=== PATIENT | female | born 1975 | race Caucasian/White ===

== ENCOUNTER 2018-11-11 18:50 | Emergency (ER) | payer OTHER ==
[~2018-11-11] VITALS: Ht 170.2 cm; Wt 119.3 kg
[2018-11-11 19:46] LABS: BILIRUBIN,URINE SMALL (NEG); CLARITY,URINE CLOUDY; COLOR,URINE YELLOW; NITRITE,URINE NEGATIVE (NEG); PROTEIN,URINE NEGATIVE (NEG-TRACE)
[2018-11-11 19:53] LABS: BACTERIA,URINE MANY /HPF (0-FEW); SQUAMOUS EPITHELIAL CELL,UR MOD /LPF
[2018-11-11 19:54] LABS: RBC,URINE OCC /HPF (0-2)
[2018-11-11] MEDS ORDERED: IV NORMAL SALINE 1000ML BAG 1,000 ML IV ONE (20:00)
[2018-11-11] MEDS ORDERED: ONDANSETRON PF 4 MG/2 ML VIAL. IV ONE (20:00)
[2018-11-11] MEDS ORDERED: fentaNYL PF VIAL 100 MCG/2 ML VIAL IV ONE (20:00)
[2018-11-11 20:01] LABS: FECAL OB PT POSITIVE (NEG)
[2018-11-11 20:05] LABS: BASO # 0.1 x10^3/uL (0.0-0.2); BASO % 1 % (0-3); EOS # 0.1 x10^3/uL (0.0-0.7); EOS % 1 % (0-3); HEMATOCRIT 40.7 % (36.0-47.0); HEMOGLOBIN 13.9 g/dL (12.0-15.5); LYMPH # 2.2 x10^3/uL (1.0-4.8); LYMPH % 23 % (24-48); MEAN CORPUSCULAR HEMOGLOBIN 30 pg (25-35); MEAN CORPUSCULAR HGB CONC 34 g/dL (31-37); MEAN CORPUSCULAR VOLUME 88 fL (79-100); MONO # 0.7 x10^3/uL (0.0-1.1); MONO % 7 % (0-9); NEUT # 6.7 x10^3/uL (1.8-7.7); NEUT % 69 % (31-73); PLATELET COUNT 277 x10^3/uL (140-400); RED BLOOD COUNT 4.62 x10^6/uL (3.50-5.40); RED CELL DISTRIBUTION WIDTH 15.6 % (11.5-14.5); WHITE BLOOD COUNT 9.8 x10^3/uL (4.0-11.0)
[2018-11-11 20:21] LABS: CALCIUM 9.4 mg/dL (8.5-10.1); GFR 61.1; POTASSIUM 3.6 mmol/L (3.5-5.1)
[2018-11-11 20:27] LABS: ALBUMIN 3.9 g/dL (3.4-5.0); ALBUMIN/GLOBULIN RATIO 1.1 (1.0-1.7); TOTAL BILIRUBIN 0.4 mg/dL (0.2-1.0); TOTAL PROTEIN 7.5 g/dL (6.4-8.2)
[2018-11-11] MEDS ORDERED: IOHEXOL 300 MG/ML 100ML VIAL. IV ONE (21:00)
[2018-11-11] MEDS ORDERED: CONTRAST GIVEN. MC PRN (21:00)
--- NOTE | 2018-11-11 21:49 | RAD ---
CT ABD PELV W/ IV CONTRST ONLY Indication: Lower abdominal pain, blood in stool Technique: Postcontrast CT imaging was performed of the abdomen pelvis, multiplanar reconstruction images submitted. No oral contrast was given. One or more of the following individualized dose reduction techniques were utilized for this examination: 1. Automated exposure control 2. Adjustment of the mA and/or kV according to patient size 3. Use of iterative reconstruction technique. Comparison: None Findings: No focal abnormality is identified of the liver, pancreas, spleen. There has been cholecystectomy. Both kidneys enhance, no hydronephrosis. Accurate evaluation of bowel is limited without oral contrast, no bowel dilatation or free air. There is small quantity of free fluid in the posterior left pelvis near the adnexa region, some fullness of left adnexa with focus of different density about 1.4 cm. Normal caliber appendix is visualized without adjacent inflammatory change. There is transitional anatomy of the lumbar spine. There is degenerative disc disease of the visualized L4-5 level, also disc osteophyte complex at this level contributing to narrowing of the left neural foramen in combination with facet degenerative change. IMPRESSION: 1. There is minimal free fluid in the left dependent pelvis, some heterogeneity of the left adnexal region possibly component of small underlying complex or hemorrhagic cyst poorly evaluated on this exam. 2. There is no significant inflammatory change about the bowel, no CT evidence of acute appendicitis. 3. There is transitional anatomy of the lumbar spine, degenerative disc disease and spondylosis at what is considered L4-5, also narrowing of the left L4-5 neural foramen by facet degenerative change and disc osteophyte complex. Electronically signed by: Richard Lemon MD (11/11/2018 9:47 PM) [facility]
--- NOTE | 2018-11-11 21:59 | PHYS DOC ---
Past Medical History Past Medical History: Asthma, Hypothyroid Past Surgical History: Cholecystectomy, Other Additional Past Surgical Histo: back Alcohol Use: None Drug Use: None Adult General Chief Complaint Chief Complaint: ABDOMINAL PAIN HPI HPI Patient is a 43 year old [f__sex] who presents with [] Review of Systems Review of Systems Constitutional: Denies fever or chills [] Eyes: Denies change in visual acuity, redness, or eye pain [] HENT: Denies nasal congestion or sore throat [] Respiratory: Denies cough or shortness of breath [] Cardiovascular: No additional information not addressed in HPI [] GI: Denies abdominal pain, nausea, vomiting, bloody stools or diarrhea [] : Denies dysuria or hematuria [] Musculoskeletal: Denies back pain or joint pain [] Integument: Denies rash or skin lesions [] Neurologic: Denies headache, focal weakness or sensory changes [] Endocrine: Denies polyuria or polydipsia [] All other systems were reviewed and found to be within normal limits, except as documented in this note. Current Medications Current Medications Current Medications Medications (Trade) Dose Ordered Sig/Homero Start Time Stop Time Status Last Admin Dose Admin Fentanyl Citrate (Fentanyl 2ml Vial) 50 mcg 1X ONCE 11/11/18 20:00 11/11/18 20:01 DC 11/11/18 20:04 50 MCG Info (CONTRAST GIVEN -- Rx MONITORING) 1 each PRN DAILY PRN 11/11/18 21:00 11/13/18 20:59 Iohexol (Omnipaque 300 Mg/ml) 75 ml 1X ONCE 11/11/18 21:00 11/11/18 21:01 DC 11/11/18 21:31 75 ML Ondansetron HCl (Zofran) 4 mg 1X ONCE 11/11/18 20:00 11/11/18 20:01 DC 11/11/18 20:04 4 MG Sodium Chloride 1,000 ml @ 1,000 mls/hr 1X ONCE 11/11/18 20:00 11/11/18 20:59 DC 11/11/18 20:04 1,000 MLS/HR Allergies Allergies Allergies Coded Allergies Type Severity Reaction Last Updated Verified Penicillins Allergy Intermediate 11/11/18 Yes Physical Exam Physical Exam Constitutional: Well developed, well nourished, no acute distress, non-toxic appearance. [] HENT: Normocephalic, atraumatic, bilateral external ears normal, oropharynx moist, no oral exudates, nose normal. [] Eyes: PERRLA, EOMI, conjunctiva normal, no discharge. [] Neck: Normal range of motion, no tenderness, supple, no stridor. [] Cardiovascular:Heart rate regular rhythm, no murmur [] Lungs & Thorax: Bilateral breath sounds clear to auscultation [] Abdomen: Bowel sounds normal, soft, no tenderness, no masses, no pulsatile ma sses. [] Skin: Warm, dry, no erythema, no rash. [] Back: No tenderness, no CVA tenderness. [] Extremities: No tenderness, no cyanosis, no clubbing, ROM intact, no edema. [] Neurologic: Alert and oriented X 3, normal motor function, normal sensory function, no focal deficits noted. [] Psychologic: Affect normal, judgement normal, mood normal. [] Current Patient Data Vital Signs Vital Signs Date Time Temp Pulse Resp B/P (MAP) Pulse Ox O2 Delivery O2 Flow Rate FiO2 11/11/18 20:04 16 96 11/11/18 19:30 99.0 94 151/91 (111) Room Air 99.0 Lab Values Laboratory Tests Test 11/11/18 19:30 11/11/18 19:40 11/11/18 19:45 11/11/18 19:52 Urine Collection Type Unknown Urine Color Yellow Urine Clarity Cloudy Urine pH 5.0 Urine Specific [place] >=1.030 Urine Protein Negative mg/dL (NEG-TRACE) Urine Glucose (UA) Negative mg/dL (NEG) Urine Ketones (Stick) Negative mg/dL (NEG) Urine Blood Negative (NEG) Urine Nitrite Negative (NEG) Urine Bilirubin Small (NEG) Urine Urobilinogen Dipstick 1.0 mg/dL (0.2 mg/dL) Urine Leukocyte Esterase Moderate (NEG) Urine RBC Occ /HPF (0-2) Urine WBC 1-4 /HPF (0-4) Urine Squamous Epithelial Cells Mod /LPF Urine Bacteria Many /HPF (0-FEW) Urine Mucus Mod /LPF POC Urine HCG, Qualitative Hcg negative (Negative) Stool Occult Blood Positive (NEG) White Blood Count 9.8 x10^3/uL (4.0-11.0) Red Blood Count 4.62 x10^6/uL (3.50-5.40) Hemoglobin 13.9 g/dL (12.0-15.5) Hematocrit 40.7 % (36.0-47.0) Mean Corpuscular Volume 88 fL (79-100) Mean Corpuscular Hemoglobin 30 pg (25-35) Mean Corpuscular Hemoglobin Concent 34 g/dL (31-37) Red Cell Distribution Width 15.6 % (11.5-14.5) H Platelet Count 277 x10^3/uL (140-400) Neutrophils (%) (Auto) 69 % (31-73) Lymphocytes (%) (Auto) 23 % (24-48) L Monocytes (%) (Auto) 7 % (0-9) Eosinophils (%) (Auto) 1 % (0-3) Basophils (%) (Auto) 1 % (0-3) Neutrophils # (Auto) 6.7 x10^3/uL (1.8-7.7) Lymphocytes # (Auto) 2.2 x10^3/uL (1.0-4.8) Monocytes # (Auto) 0.7 x10^3/uL (0.0-1.1) Eosinophils # (Auto) 0.1 x10^3/uL (0.0-0.7) Basophils # (Auto) 0.1 x10^3/uL (0.0-0.2) Sodium Level 140 mmol/L (136-145) Potassium Level 3.6 mmol/L (3.5-5.1) Chloride Level 104 mmol/L (98-107) Carbon Dioxide Level 23 mmol/L (21-32) Anion Gap 13 (6-14) Blood Urea Nitrogen 17 mg/dL (7-20) Creatinine 1.0 mg/dL (0.6-1.0) Estimated GFR (Cockcroft-Gault) 61.1 BUN/Creatinine Ratio 17 (6-20) Glucose Level 103 mg/dL (70-99) H Calcium Level 9.4 mg/dL (8.5-10.1) Total Bilirubin 0.4 mg/dL (0.2-1.0) Aspartate Amino Transferase (AST) 18 U/L (15-37) Alanine Aminotransferase (ALT) 20 U/L (14-59) Alkaline Phosphatase 54 U/L (46-116) Total Protein 7.5 g/dL (6.4-8.2) Albumin 3.9 g/dL (3.4-5.0) Albumin/Globulin Ratio 1.1 (1.0-1.7) Laboratory Tests 11/11/18 19:52 Laboratory Tests 11/11/18 19:52 EKG EKG [] Radiology/Procedures Radiology/Procedures [] Course & Med Decision Making Course & Med Decision Making Pertinent Labs and Imaging studies reviewed. (See chart for details) [] Dragon Disclaimer Dragon Disclaimer This electronic medical record was generated, in whole or in part, using a voice recognition dictation system. Departure Departure Impression: Primary Impression: Bilateral lower abdominal pain Additional Impression: Blood present in stool Disposition: 01 HOME, SELF-CARE Condition: STABLE Referrals: NO PCP (PCP) Patient Instructions: Abdominal Pain (Nonspecific), Bloody Stools, [id number] Additional Instructions: Follow up with your primary care doctor if symptoms persist, return to the ER if symptoms worsen. Problem Qualifiers JOSH [employer] Nov 11, 2018 21:59
[2018-11-11 22:28] VITALS: BP 138/80
== END 2018-11-11 22:15 | disposition home or self-care (01) ==
LOC: ER 18:50
DX: K92.1 Melena (principal); R10.31 Right lower quadrant pain; R10.32 Left lower quadrant pain; J45.909 Unspecified asthma, uncomplicated; E03.9 Hypothyroidism, unspecified; Z90.49 Acquired absence of other specified parts of digestive tract; Z88.0 Allergy status to penicillin
CPT/HCPCS: 36415; 74177; 80053; 81001; 81025; 82274; 85025; 96374; 96375; 99285; J2405; J3010; J7030; Q9967

== ENCOUNTER → 2018-12-01 | Outpatient (CLI) | payer OTHER ==
[2018-11-11 22:28] VITALS: BP 138/80
--- NOTE | 2018-12-01 17:08 | KCIC ---
Bilateral digital screening mammograms with 3-D tomosynthesis: Reason for examination: Routine baseline screening. Bilateral mammograms in CC and oblique projections were obtained with 2-D imaging and 3-D tomosynthesis imaging on a [employer] Inspiration unit and reviewed on the workstation. Interpretation was made with the benefit of CAD. The skin and nipples show no abnormalities. No abnormal axillary lymph nodes are seen. The breast parenchyma is predominantly fatty. (Breast density: Category A.) There is a small nodule consistent with an intramammary lymph node at the 2:00 C position of the left breast. There are no other dominant masses, suspicious calcifications or architectural distortion. Impression: No evidence of malignancy. Recommend routine screening. BI-RAD Category 2: Benign. "Our facility is accredited by the [employer] Mammography Program." This patient's information has been entered into a reminder system for the patient to be notified with the results of her examination and a target date for the next mammogram. Electronically signed by: Carol Darnell MD (12/01/2018 5:06 PM) [id number]
== END | disposition home or self-care (01) ==
LOC: KCIC MAMMO 13:59
PROVIDERS: ATTEND Nurse Practitioner Family
DX: Z12.31 Encounter for screening mammogram for malignant neoplasm of breast (principal); N63.21 Unspecified lump in the left breast, upper outer quadrant
CPT/HCPCS: 77063; 77067

== ENCOUNTER 2021-05-31 08:55 | Emergency (ER) | payer SELFPAY ==
[~2021-05-31] VITALS: Ht 170.2 cm; Wt 94.1 kg
[2021-05-31] MEDS ORDERED: LIDOCAINE/EPI/TETRACAINE TOPICAL GEL 3 ML. TP ONE (09:30)
[2021-05-31 09:44] LABS: BASO # 0.1 x10^3/uL (0.0-0.2); BASO % 1 % (0-3); EOS % 0 % (0-3); HEMOGLOBIN 12.7 g/dL (12.0-15.5); LYMPH # 0.7 x10^3/uL (1.0-4.8); LYMPH % 9 % (24-48); MEAN CORPUSCULAR HEMOGLOBIN 30 pg (25-35); MEAN CORPUSCULAR HGB CONC 34 g/dL (31-37); MEAN CORPUSCULAR VOLUME 88 fL (79-100); MONO # 0.7 x10^3/uL (0.0-1.1); MONO % 9 % (0-9); NEUT # 6.1 x10^3/uL (1.8-7.7); NEUT % 81 % (31-73); PLATELET COUNT 280 x10^3/uL (140-400); RED CELL DISTRIBUTION WIDTH 16.2 % (11.5-14.5); WHITE BLOOD COUNT 7.6 x10^3/uL (4.0-11.0)
[2021-05-31 09:51] LABS: CALCIUM 8.7 mg/dL (8.5-10.1); CREATININE 0.9 mg/dL (0.6-1.0); POTASSIUM 3.9 mmol/L (3.5-5.1)
[2021-05-31 10:02] LABS: ALBUMIN 3.6 g/dL (3.4-5.0); TOTAL BILIRUBIN 0.2 mg/dL (0.2-1.0); TOTAL PROTEIN 7.2 g/dL (6.4-8.2)
--- NOTE | 2021-05-31 10:08 | RAD ---
EXAM: Head and cervical spine CT without contrast. HISTORY: Syncope. Pain. TECHNIQUE: Computed tomographic images of the head and cervical spine were obtained without contrast. *One or more of the following individualized dose reduction techniques were utilized for this examina tion: 1. Automated exposure control. 2. Adjustment of the mA and/or kV according to patient size. 3. Use of iterative reconstruction technique. COMPARISON: None. FINDINGS: Head: There is no hemorrhage. There is no mass effect or midline shift. There is no hydrocephalus. Th e olea-white matter differentiation pattern is intact. The orbits are unremarkable. There is paranasa l sinus mucosal thickening. There are maxillary sinus air-fluid levels. The mastoid air cells are artem ar. There is no suspicious calvarial lesion. Cervical spine: There is cervical curvature likely due to thoracic scoliosis. There is no significant cervical listhesis. There is multilevel endplate remodeling. There is no acute fracture or suspiciou s osseous lesion. 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 There is no significant foraminal or central canal stenosis. IMPRESSION: No acute intracranial finding or evidence of acute cervical spine trauma. Electronically signed by: Carmen Morgan MD (05/31/2021 10:06 AM) [id number]
--- NOTE | 2021-05-31 10:18 | PHYS DOC ---
Past Medical History Past Medical History: Asthma, Hypothyroid Past Surgical History: Cholecystectomy, Other Additional Past Surgical Histo: back Smoking Status: Never Smoker Alcohol Use: None Drug Use: None General Adult EDM: Chief Complaint: MECHANICAL FALL HPI: HPI: Patient is a 46-year-old female that presented today after a fall. Patient states she was feeding the cats this morning around 7 AM she states she felt dizzy and woke up on the floor. Patient states she did hit her head on the wooden floor that she has, she said this was not a witnessed fall as her was at work, she was able to get herself off the floor and call him for help. Patient states she has a history of schizophrenia took her Risperdal today and did not eat or drink any food or water with this medication she said that over the last couple of days she has had increased problems with dizziness after taking her Risperdal and she has contacted her primary care physician for further management of this. Patient denies chest pain, shortness of air, fever or chills. Review of Systems: Review of Systems: Constitutional: Denies fever or chills. [] Eyes: Denies change in visual acuity. [] HENT: Denies nasal congestion or sore throat. [] Respiratory: Denies cough or shortness of breath. [] Cardiovascular: Denies chest pain or edema. [] GI: Denies abdominal pain, nausea, vomiting, bloody stools or diarrhea. [] : Denies dysuria. [] Musculoskeletal: Denies back pain or joint pain. [] Integument: Scalp laceration denies rash. [] Neurologic: Headache and LOC after a fall denies focal weakness or sensory changes. [] Endocrine: Denies polyuria or polydipsia. [] Lymphatic: Denies swollen glands. [] Psychiatric: Denies depression or anxiety. [] Heart Score: C/O Chest Pain: No Risk Factors: Risk Factors: DM, Current or recent (<one month) smoker, HTN, HLP, family history of CAD, obesity. Risk Scores: Score 0 - 3: 2.5% MACE over next 6 weeks - Discharge Home Score 4 - 6: 20.3% MACE over next 6 weeks - Admit for Clinical Observation Score 7 - 10: 72.7% MACE over next 6 weeks - Early Invasive Strategies Current Medications: Current Medications Medications (Trade) Dose Ordered Sig/Homero Start Time Stop Time Status Last Admin Dose Admin Tetracaine/ Epinephrine/ Lidocaine (Let (Wkgd-Cfanqfq-Tnyhj) Gel) 3 ml 1X ONCE 05/31/21 09:30 05/31/21 09:31 DC 05/31/21 10:01 3 ML Allergies: Allergies: Allergies Coded Allergies Type Severity Reaction Last Updated Verified Penicillins Allergy Intermediate 11/11/18 Yes Physical Exam: PE: Constitutional: Well developed, well nourished, no acute distress, non-toxic appearance. [] HENT: Normocephalic, atraumatic, bilateral external ears normal, oropharynx moist, no oral exudates, nose normal. [] Eyes: PERRLA, EOMI, conjunctiva normal, no discharge. [] Neck: Normal range of motion, no tenderness, supple, no stridor. [] Cardiovascular:Heart rate regular rhythm, no murmur [] Lungs & Thorax: Bilateral breath sounds clear to auscultation [] Abdomen: Bowel sounds normal, soft, no tenderness, no masses, no pulsatile masses. [] Skin: Warm, dry, no erythema, no rash. [] Back: No tenderness, no CVA tenderness. [] Extremities: No tenderness, no cyanosis, no clubbing, ROM intact, no edema. [] Neurologic: Alert and oriented X 3, normal motor function, normal sensory function, no focal deficits noted. [] Psychologic: Affect normal, judgement normal, mood normal. [] Current Patient Data: Labs: Laboratory Tests Test 05/31/21 09:15 05/31/21 09:32 05/31/21 13:06 Glucose (Fingerstick) 121 mg/dL White Blood Count 7.6 x10^3/uL Red Blood Count 4.30 x10^6/uL Hemoglobin 12.7 g/dL Hematocrit 38.0 % Mean Corpuscular Volume 88 fL Mean Corpuscular Hemoglobin 30 pg Mean Corpuscular Hemoglobin Concent 34 g/dL Red Cell Distribution Width 16.2 % Platelet Count 280 x10^3/uL Neutrophils (%) (Auto) 81 % Lymphocytes (%) (Auto) 9 % Monocytes (%) (Auto) 9 % Eosinophils (%) (Auto) 0 % Basophils (%) (Auto) 1 % Neutrophils # (Auto) 6.1 x10^3/uL Lymphocytes # (Auto) 0.7 x10^3/uL Monocytes # (Auto) 0.7 x10^3/uL Eosinophils # (Auto) 0.0 x10^3/uL Basophils # (Auto) 0.1 x10^3/uL Sodium Level 138 mmol/L Potassium Level 3.9 mmol/L Chloride Level 103 mmol/L Carbon Dioxide Level 27 mmol/L Anion Gap 8 Blood Urea Nitrogen 12 mg/dL Creatinine 0.9 mg/dL Estimated GFR (Cockcroft-Gault) 68.0 BUN/Creatinine Ratio 13 Glucose Level 118 mg/dL Calcium Level 8.7 mg/dL Total Bilirubin 0.2 mg/dL Aspartate Amino Transf (AST/SGOT) 21 U/L Alanine Aminotransferase (ALT/SGPT) 18 U/L Alkaline Phosphatase 56 U/L Troponin I High Sensitivity 5 ng/L Total Protein 7.2 g/dL Albumin 3.6 g/dL Albumin/Globulin Ratio 1.0 Urine Collection Type U cath Urine Color Yellow Urine Clarity Clear Urine pH 5.5 Urine Specific [place] 1.020 Urine Protein Negative mg/dL Urine Glucose (UA) Negative mg/dL Urine Ketones (Stick) Trace mg/dL Urine Blood Negative Urine Nitrite Negative Urine Bilirubin Negative Urine Urobilinogen Dipstick 0.2 mg/dL Urine Leukocyte Esterase Negative Urine RBC Occ /HPF Urine WBC Occ /HPF Urine Squamous Epithelial Cells Few /LPF Urine Bacteria Few /HPF Urine Hyaline Casts Few /HPF Urine Mucus Marked /LPF Current Medications Medications (Trade) Dose Ordered Sig/Homero Route PRN Reason Start Time Stop Time Status Last Admin Dose Admin Tetracaine/ Epinephrine/ Lidocaine (Let (Drir-Npbaxtr-Uworw) Gel) 3 ml 1X ONCE TP 05/31/21 09:30 05/31/21 09:31 DC 05/31/21 10:01 Diphtheria/ Tetanus/Acell Pertussis (Boostrix) 0.5 ml ONCE ONCE VAX IM 05/31/21 11:45 05/31/21 11:46 DC 05/31/21 11:48 Laboratory Tests Test 05/31/21 09:15 05/31/21 09:32 Glucose (Fingerstick) 121 mg/dL (70-99) H White Blood Count 7.6 x10^3/uL (4.0-11.0) Red Blood Count 4.30 x10^6/uL (3.50-5.40) Hemoglobin 12.7 g/dL (12.0-15.5) Hematocrit 38.0 % (36.0-47.0) Mean Corpuscular Volume 88 fL (79-100) Mean Corpuscular Hemoglobin 30 pg (25-35) Mean Corpuscular Hemoglobin Concent 34 g/dL (31-37) Red Cell Distribution Width 16.2 % (11.5-14.5) H Platelet Count 280 x10^3/uL (140-400) Neutrophils (%) (Auto) 81 % (31-73) H Lymphocytes (%) (Auto) 9 % (24-48) L Monocytes (%) (Auto) 9 % (0-9) Eosinophils (%) (Auto) 0 % (0-3) Basophils (%) (Auto) 1 % (0-3) Neutrophils # (Auto) 6.1 x10^3/uL (1.8-7.7) Lymphocytes # (Auto) 0.7 x10^3/uL (1.0-4.8) L Monocytes # (Auto) 0.7 x10^3/uL (0.0-1.1) Eosinophils # (Auto) 0.0 x10^3/uL (0.0-0.7) Basophils # (Auto) 0.1 x10^3/uL (0.0-0.2) Sodium Level 138 mmol/L (136-145) Potassium Level 3.9 mmol/L (3.5-5.1) Chloride Level 103 mmol/L (98-107) Carbon Dioxide Level 27 mmol/L (21-32) Anion Gap 8 (6-14) Blood Urea Nitrogen 12 mg/dL (7-20) Creatinine 0.9 mg/dL (0.6-1.0) Estimated GFR (Cockcroft-Gault) 68.0 BUN/Creatinine Ratio 13 (6-20) Glucose Level 118 mg/dL (70-99) H Calcium Level 8.7 mg/dL (8.5-10.1) Total Bilirubin 0.2 mg/dL (0.2-1.0) Aspartate Amino Transferase (AST) 21 U/L (15-37) Alanine Aminotransferase (ALT) 18 U/L (14-59) Alkaline Phosphatase 56 U/L (46-116) Troponin I High Sensitivity 5 ng/L (4-50) Total Protein 7.2 g/dL (6.4-8.2) Albumin 3.6 g/dL (3.4-5.0) Albumin/Globulin Ratio 1.0 (1.0-1.7) Laboratory Tests 05/31/21 09:32 Laboratory Tests 05/31/21 09:32 Vital Signs: Vital Signs Date Time Temp Pulse Resp B/P (MAP) Pulse Ox O2 Delivery O2 Flow Rate FiO2 05/31/21 13:24 68 107/55 (72) 99 Room Air 05/31/21 12:24 58 103/58 (73) 99 Room Air 05/31/21 11:37 84 119/63 (81) 99 Room Air 05/31/21 10:54 103/57 (72) 99 Room Air 05/31/21 10:24 68 108/57 (74) 100 Room Air 05/31/21 09:54 114/59 (77) Room Air 05/31/21 09:39 78 109/52 (71) 98 Room Air 05/31/21 09:03 99.2 95 18 122/67 (85) 99 Room Air 99.2 Vital Signs Date Time Temp Pulse Resp B/P (MAP) Pulse Ox O2 Delivery O2 Flow Rate FiO2 05/31/21 09:03 99.2 95 18 122/67 (85) 99 Room Air 99.2 EKG: EKG: EKG done at [address] Santiago at 914 no STEMI rate of 96 sinus rhythm no ectopy with left axis deviation noted with a CO interval of 142 ms with a QTC of 418 ms [] Radiology/Procedures: Radiology/Procedures: REASON: syncopal episode PROCEDURE: CT HEAD AND CERVICAL SPINE WO EXAM: Head and cervical spine CT without contrast. HISTORY: Syncope. Pain. TECHNIQUE: Computed tomographic images of the head and cervical spine were obtained without contrast. *One or more of the following individualized dose reduction techniques were utilized for this examination: 1. Automated exposure control. 2. Adjustment of the mA and/or kV according to patient size. 3. Use of iterative reconstruction technique. COMPARISON: None. FINDINGS: Head: There is no hemorrhage. There is no mass effect or midline shift. There is no hydrocephalus. The olea-white matter differentiation pattern is intact. The orbits are unremarkable. There is paranasal sinus mucosal thickening. There are maxillary sinus air-fluid levels. The mastoid air cells are clear. There is no suspicious calvarial lesion. Cervical spine: There is cervical curvature likely due to thoracic scoliosis. There is no significant cervical listhesis. There is multilevel endplate remodeling. There is no acute fracture or suspicious osseous lesion. 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 There is no significant foraminal or central canal stenosis. IMPRESSION: No acute intracranial finding or evidence of acute cervical spine trauma. Electronically signed by: Carmen Morgan MD (05/31/2021 10:06 AM) [id number][] Indication: scalp laceration Procedure: The patient was placed in the appropriate position and posterior scalp laceration properly anesthetized with the use of let that was placed by the nurse, scalp laceration was irrigated with approximately 120 mL of normal saline, it was cleansed with Betadine solution, 2 supa were placed to close the wound, area was cleansed no dressing will be applied. Total repaired wound length: 1 cm Course & Med Decision Making: Course & Med Decision Making Pertinent Labs and Imaging studies reviewed. (See chart for details) 1400 reviewed radiological and laboratory results with patient did inform her there was no acute findings on any of her labs or CT scans, dizziness at this time could be due to her medications, and she also is not drinking enough fluid on a daily basis I instructed her to increase by mouth fluids and to follow-up with her primary care physician for further management of her dizziness as related to her psychiatric medications. Patient is to cleanse the scalp laceration twice daily with mild soap and water and watch for any signs and symptoms of infection supa are to be removed in 7 days. Patient was given strict precautions to return change in mental status, strokelike symptoms such as unable inability to use 1 side of her body facial droop, slurred speech, visual issues, or any headache that is not relieved by Tylenol or ibuprofen. Patient is also to follow-up with her primary care physician that manages her psychiatric meds for further evaluation of the dizziness that she is em Valles Disclaimer: Reena Disclaimer: This electronic medical record was generated, in whole or in part, using a voice recognition dictation system. Departure Departure Impression: Primary Impression: Dizziness Additional Impressions: Syncope Qualified Codes: R55 - Syncope and collapse Fall Qualified Codes: W19.XXXA - Unspecified fall, initial encounter Scalp laceration Qualified Codes: S01.01XA - Laceration without foreign body of scalp, initial encounter Disposition: HOME / SELF CARE / HOMELESS Condition: STABLE Referrals: NO PCP (PCP) Patient Instructions: Dizziness, Facial or Scalp Contusion, Laceration Care, Adult, Syncope Additional Instructions: Follow-up with your primary care physician at the [facility] for further management of your dizziness related to your medications Cleanse the wound twice daily with mild soap and water, watching for any signs and symptoms of infection Staple removal in 7 days you may return to the emergency department or follow-up with your primary care physician Tylenol and/or ibuprofen as needed for pain Increase by mouth fluids THOM MEDRANO APRN May 31, 2021 10:18
[2021-05-31] MEDS ORDERED: DIPHTH,PERTUSS(ACELL),TET TOX 0.5 ML DISP.SYRIN. VAX IM ONE (11:45)
[2021-05-31 13:24] VITALS: BP 107/55
[2021-05-31 13:37] LABS: BILIRUBIN,URINE NEGATIVE (NEG); CLARITY,URINE CLEAR; COLOR,URINE YELLOW
[2021-05-31 13:38] LABS: NITRITE,URINE NEGATIVE (NEG); PH,URINE 5.5 (<5.0-8.0); PROTEIN,URINE NEGATIVE (NEG-TRACE); UROBILINOGEN,URINE 0.2 mg/dL (0.2 mg/dL)
[2021-05-31 13:39] LABS: HYALINE CASTS, URINE FEW /HPF
[2021-05-31 13:40] LABS: BACTERIA,URINE FEW /HPF (0-FEW); RBC,URINE OCC /HPF (0-2); WBC,URINE OCC /HPF (0-4)
--- NOTE | 2021-05-31 18:04 | EKG ---
[facility] [address] [place] [address] Test Date: 2021-05-31 Test Time: 09:11:23 Pat Name: RAMYA CLOUD Department: Room: Gender: F Plastic Cutter: : 1975 Requested By: THOM MEDRANO Order Number: [id number] Reading MD: Measurements Intervals [place] Rate: 96 P: 60 TN: 142 QRS: -46 QRSD: 92 T: 54 QT: 330 QTc: 418 Interpretive Statements SINUS RHYTHM ABNORMAL LEFT AXIS DEVIATION S1,S2,S3 PATTERN LEFT ANTERIOR FASCICULAR BLOCK ABNORMAL ECG RI6.02 No previous ECG available for comparison
== END 2021-05-31 14:25 | disposition home or self-care (01) ==
LOC: ER 08:55
DX: S01.01XA Laceration without foreign body of scalp, initial encounter (principal); R55 Syncope and collapse; J45.909 Unspecified asthma, uncomplicated; E03.9 Hypothyroidism, unspecified; F20.9 Schizophrenia, unspecified; Z88.0 Allergy status to penicillin; W18.01XA Striking against sports equipment with subsequent fall, initial encounter; Y93.89 Activity, other specified; Y92.89 Other specified places as the place of occurrence of the external cause; Y99.8 Other external cause status
CPT/HCPCS: 12001; 36415; 70450; 72125; 80053; 81001; 82962; 84484; 85025; 90471; 90715; 93005; 99285-25

== ENCOUNTER 2021-06-07 11:52 | Emergency (ER) | payer SELFPAY ==
[~2021-06-07] VITALS: Ht 175.3 cm; Wt 81.0 kg
[2021-06-07 12:22] VITALS: BP 128/68
--- NOTE | 2021-06-07 12:35 | PHYS DOC ---
Past Medical History Past Medical History: Asthma, Hypothyroid Past Surgical History: Cholecystectomy, Other Additional Past Surgical Histo: back Smoking Status: Never Smoker Alcohol Use: None Drug Use: None General Adult EDM: Chief Complaint: SUTURE/STAPLE REMOVAL HPI: HPI: Patient is a 46-year-old female who presents emergency department requesting staple removal from her scalp that was placed 7 days ago here in this emergency department. Patient denies other physical complaints or physical concerns. Patient reports she was seen here 1 week ago and required supa from a syncopal episode and fall. Patient denies any returning syncopal episodes, denies headaches, denies fever or chills. Review of Systems: Review of Systems: 14 body systems of review of systems have been reviewed. See HPI for pertinent positives and negative responses, otherwise all other systems are negative, nonpertinent or noncontributory. Constitutional: Negative except as outlined in HPI above. Skin: Negative except as outlined in HPI above. Eyes: Negative except as outlined in HPI above. HENT: Negative except as outlined in HPI above. Respiratory: Negative except as outlined in HPI above. Cardiovascular: Negative except as outlined in HPI above. GI: Negative except as outlined in HPI above. : Negative except as outlined in HPI above. Musculoskeletal: Negative except as outlined in HPI above. Integument: Negative except as outlined in HPI above. Neurologic: Negative except as outlined in HPI above. Endocrine: Negative except as outlined in HPI above. Lymphatic: Negative except as outlined in HPI above. Psychiatric: Negative except as outlined in HPI above. Heart Score: C/O Chest Pain: No Risk Factors: Risk Factors: DM, Current or recent (<one month) smoker, HTN, HLP, family history of CAD, obesity. Risk Scores: Score 0 - 3: 2.5% MACE over next 6 weeks - Discharge Home Score 4 - 6: 20.3% MACE over next 6 weeks - Admit for Clinical Observation Score 7 - 10: 72.7% MACE over next 6 weeks - Early Invasive Strategies Allergies: Allergies: Allergies Coded Allergies Type Severity Reaction Last Updated Verified Penicillins Allergy Intermediate 11/11/18 Yes Physical Exam: PE: Constitutional: Well developed, well nourished, no acute distress, non-toxic appearance. 46-year-old female in no apparent distress. HENT: Normocephalic, atraumatic. 2 dermal supa to occipital aspect of scalp. Edges well approximated, no signs of infectious process, no drainage appreci ated, no erythema or swelling appreciated. Eyes: Conjunctiva normal, no discharge. Neck: Normal range of motion, no stridor. Cardiovascular: No cyanosis appreciated, distal cap refill less than 2 seconds. Lungs & Thorax: Patient is in no respiratory distress, no audible adventitious lung sounds appreciated. Abdomen: Nontender, no abnormalities noted. Skin: Warm, dry, no erythema, no rash. See HEENT note for focused skin examination. Back: No tenderness, no deformities. Extremities: No tenderness, no cyanosis, no clubbing, ROM intact, no edema. Neurologic: Alert and oriented X 3, normal motor function, normal sensory function, no focal deficits noted. Psychologic: Affect normal, judgement normal, mood normal. Current Patient Data: Vital Signs: Vital Signs Date Time Temp Pulse Resp B/P (MAP) Pulse Ox O2 Delivery O2 Flow Rate FiO2 06/07/21 12:22 99.2 68 16 128/68 (88) 99 Room Air 99.2 EKG: EKG: [] Radiology/Procedures: Radiology/Procedures: [] Course & Med Decision Making: Course & Med Decision Making Pertinent Labs and Imaging studies reviewed. (See chart for details) 46-year-old female presents to the emergency department for suture removal, vital signs reviewed, examination is consistent with patient's explanation of events, 2 dermal supa were removed by ED nursing staff, upon reevaluation of suture/staple repair site, there is no bleeding, no signs and symptoms of infectious process. Discussed with patient ongoing wound care at home, follow- up with primary care for ongoing symptoms, return to ER precautions or concerns were reviewed, patient gave verbal understanding of and is amenable to ED discharge planning. Discussed with the patient all findings and diagnostic testing as well as the need to follow-up with their primary care provider for further evaluation and treatment or return to the ED if any new or worsening symptoms. Strict return precautions were also discussed at length, the patient voiced understanding and agreement with the discharge planning. The patient was nontoxic in appearance, in no apparent distress, and hemodynamically stable at the time of disposition. Dragon Disclaimer: Dragon Disclaimer: This electronic medical record was generated, in whole or in part, using a voice recognition dictation system. Departure Departure Impression: Primary Impression: Removal of supa Disposition: HOME / SELF CARE / HOMELESS Condition: GOOD Referrals: NO PCP (PCP) Patient Instructions: Staple Removal, Care After Additional Instructions: You were seen today in the emergency department for removal of dermal supa. 2 dermal supa were removed. Please continue to perform wound care to the area until healing is complete, you may wash with soap and water or shampoo during shower, placed Polysporin. Return to the emergency department for worsening symptoms or other concerns. Follow-up with your primary care for ongoing wound care and symptoms. Thank you for visiting our Emergency Department. It was a pleasure taking care of you today in the emergency department and we appreciate you trusting us with your care. If any additional problems come up don't hesitate to return to visit us. Please follow up with your primary care provider so they can plan additional care if needed and know about the problem that you had. If symptoms worsen come back to the Emergency Department. Any concerning symptoms that start such as chest pain, shortness of air, weakness or numbness on one side of the body, running high fevers or any other concerning symptoms return to the ER. DOMONIQUE AYALA APRN Jun 07, 2021 12:35
== END 2021-06-07 12:42 | disposition home or self-care (01) ==
LOC: ER 11:52
DX: S01.01XD Laceration without foreign body of scalp, subsequent encounter (principal); R55 Syncope and collapse; J45.909 Unspecified asthma, uncomplicated; E03.9 Hypothyroidism, unspecified; Z88.0 Allergy status to penicillin; W19.XXXD Unspecified fall, subsequent encounter
CPT/HCPCS: 99282